=== PATIENT | male | born 1985 | race Two or more races ===

== ENCOUNTER 2019-12-22 18:19 | Emergency (ER) | payer MEDICAID, OTHER ==
[~2019-12-22] VITALS: Ht 182.9 cm; Wt 68.0 kg
[2019-12-22 18:57] VITALS: BP 124/67
[2019-12-22] MEDS ORDERED: LIDOCAINE 1% HCL (LOCAL ANESTH.) INJ 20ML MDV IJ ONE (19:00)
[2019-12-22] MEDS ORDERED: TETANUS-DIPTH-ACEL PERTUSSIS 0.5ML SYR Tdap IM ONE (19:00)
== END 2019-12-22 20:40 | disposition home or self-care (01) ==
LOC: EDSEX 18:19 → ER 18:19
DX: S60.455A Superficial foreign body of left ring finger, initial encounter (principal); Z23 Encounter for immunization; W26.8XXA Contact with other sharp object(s), not elsewhere classified, initial encounter; Y93.89 Activity, other specified; Y92.89 Other specified places as the place of occurrence of the external cause; Y99.8 Other external cause status
CPT/HCPCS: 10120; 73130; 90471; 90715; 99285; J2001